=== PATIENT | female | born 1985 | race Hispanic/Latino ===

== ENCOUNTER 2019-12-21 05:44 | Emergency (ER) | payer OTHER ==
[2019-12-21] MEDS ORDERED: KETOROLAC TROMETHAMINE 60 MG/2 ML VIAL ONE (06:37)
[2019-12-21] MEDS ORDERED: ORPHENADRINE CITRATE 30 MG/ML ML ONE (06:37)
== END 2019-12-21 06:56 | disposition home or self-care (01) ==
LOC: EDH 05:44
DX: M62.830 Muscle spasm of back (principal); R07.89 Other chest pain
CPT/HCPCS: 96372 ×2; 99284; J1885; J2360

== ENCOUNTER 2019-12-26 16:12 | Emergency (ER) | payer OTHER ==
[2019-12-26 16:53] LABS: BASOPHILS % (AUTO) 0.9 % (0.0-5.0); EOSINOPHILS % (AUTO) 1.5 % (0.0-8.0); HEMATOCRIT 37.8 % (36-48); LYMPHOCYTES % (AUTO) 22.9 % (21.0-51.0); MEAN CORPUSCULAR HEMOGLOBIN 27.3 pg (27.0-33.0); MEAN CORPUSCULAR HGB CONC 33.6 g/dL (32.0-36.0); MEAN CORPUSCULAR VOLUME 81.3 fL (79-99); MONOCYTES % (AUTO) 7.8 % (3.0-13.0); NEUTROPHILS % (AUTO) 66.7 % (40.0-77.0); PLATELET COUNT (AUTO) 251 K/uL (130-400); RED BLOOD CELL COUNT(AUTO) 4.65 MIL/uL (4.00-5.50); RED CELL DISTRIBUTION WIDTH 11.9 % (11.0-15.5); WHITE BLOOD COUNT (AUTO) 9.4 K/uL (4.8-10.8)
[2019-12-26 17:00] LABS: APPEARANCE,URINE Clear (CLEAR); BILIRUBIN,URINE Negative (NEGATIVE); COLOR,URINE Yellow (YELLOW); GLUCOSE, URINE (UA) Negative (NEGATIVE); KETONES,URINE Negative (NEGATIVE); LEUKOCYTE ESTERASE ,URINE Negative (NEGATIVE); NITRATE,URINE Negative (NEGATIVE); OCCULT BLOOD,URINE Negative (NEGATIVE); PH,URINE 5.5 (5.0-8.0); PROTEIN,URINE Negative (NEGATIVE)
[2019-12-26 17:04] LABS: HCG,QUAL RESULT NEGATIVE (NEGATIVE)
[2019-12-26 17:07] LABS: AMPHET/METH SCREEN,URINE NEGATIVE (NEGATIVE); BARBITURATE SCREEN, URINE NEGATIVE (NEGATIVE); BENZODIAZEPINES SCREEN,URINE NEGATIVE (NEGATIVE); CANNABINOID SCREEN,URINE NEGATIVE (NEGATIVE); COCAINE SCREEN,URINE NEGATIVE (NEGATIVE); OPIATE SCREEN,URINE NEGATIVE (NEGATIVE); PHENCYCLIDINE SCREEN,URINE NEGATIVE (NEGATIVE)
[2019-12-26 17:43] LABS: CREATININE 0.7 mg/dL (0.5-1.5); POTASSIUM 3.5 mmol/L (3.5-5.1)
[2019-12-26] MEDS ORDERED: KETOROLAC TROMETHAMINE 30MG/ML ONE (17:49)
[2019-12-26] MEDS ORDERED: ONDANSETRON ODT 4 MG TAB ONE (17:49)
[2019-12-26 17:50] LABS: ALBUMIN 3.3 g/dL (3.5-5.0); BILIRUBIN,DIRECT 0.1 mg/dL (0.0-0.3); BILIRUBIN,TOTAL 0.2 mg/dL (0.2-1.0); TOTAL PROTEIN, SERUM 7.3 g/dL (6.0-8.3)
== END 2019-12-26 18:56 | disposition home or self-care (01) ==
LOC: EDH 16:12
DX: K59.00 Constipation, unspecified (principal); R10.31 Right lower quadrant pain
CPT/HCPCS: 36415; 74018; 80048; 80076; 80305; 81003; 81025; 83690; 85025; 96372; 99284; J1885

== ENCOUNTER 2022-03-31 00:21 | Emergency (ER) | payer OTHER ==
[~2022-03-31] VITALS: Ht 154.9 cm; Wt 85.3 kg
[2022-03-31 00:45] LABS: APPEARANCE,URINE CLEAR (CLEAR); BILIRUBIN,URINE NEGATIVE (NEGATIVE); COLOR,URINE YELLOW (YELLOW); GLUCOSE, URINE (UA) NEGATIVE (NEGATIVE); KETONES,URINE NEGATIVE (NEGATIVE); LEUKOCYTE ESTERASE ,URINE NEGATIVE (NEGATIVE); NITRATE,URINE NEGATIVE (NEGATIVE); OCCULT BLOOD,URINE NEGATIVE (NEGATIVE); PROTEIN,URINE NEGATIVE (NEGATIVE); UROBILINOGEN,URINE 0.2 mg/dL (0.2-1.0)
[2022-03-31] MEDS ORDERED: KETOROLAC 30MG VIAL (30MG/ML) IM ONE (01:00)
[2022-03-31 03:14] VITALS: BP 128/65
[2022-03-31] MEDS ORDERED: IBUP-1493 PO (03:15)
[2022-03-31] MEDS ORDERED: CYCL10TA16 PO (03:15)
== END 2022-03-31 03:33 | disposition home or self-care (01) ==
LOC: EDH 00:21
DX: R07.89 Other chest pain (principal); M54.50 Low back pain, unspecified; Z79.1 Long term (current) use of non-steroidal anti-inflammatories (NSAID); W18.39XA Other fall on same level, initial encounter; Y93.89 Activity, other specified; Y92.89 Other specified places as the place of occurrence of the external cause; Y99.8 Other external cause status
CPT/HCPCS: 99284; 81003; 81025; 71101; 96372; 72100; J1885

== ENCOUNTER 2022-12-14 07:35 | Emergency (ER) | payer OTHER ==
[~2022-12-14] VITALS: Ht 154.9 cm; Wt 79.4 kg
[~2022-12-14 07:35] MED LIST: CYCL10TA16 PO; IBUP-1493 PO
[2022-12-14 07:38] VITALS: BP 122/80
[2022-12-14 08:44] LABS: HCG,QUALITATIVE URINE NEGATIVE (NEGATIVE)
[2022-12-14 08:45] LABS: APPEARANCE,URINE CLOUDY (CLEAR); BILIRUBIN,URINE NEGATIVE (NEGATIVE); COLOR,URINE YELLOW (YELLOW); GLUCOSE, URINE (UA) NEGATIVE (NEGATIVE); KETONES,URINE NEGATIVE (NEGATIVE); LEUKOCYTE ESTERASE ,URINE 500 Leu/uL (NEGATIVE); NITRATE,URINE NEGATIVE (NEGATIVE); OCCULT BLOOD,URINE NEGATIVE (NEGATIVE); PROTEIN,URINE 20 mg/dL (NEGATIVE); UROBILINOGEN,URINE 0.2 mg/dL (0.2-1.0)
[2022-12-14 08:53] LABS: BACTERIA,URINE FEW /HPF (None Seen); MUCUS,URINE MANY LPF (None Seen); SQUAMOUS EPITHELIAL CELL,UR FEW /HPF (0-2); WBC,URINE 51-100 /HPF (0-1)
[2022-12-14] MEDS ORDERED: PHENAZOPYRIDINE HCL 200 MG TABLET PO ONE (09:00)
[2022-12-14] MEDS ORDERED: CEFTRIAXONE 1G VIAL IM ONE (09:00)
[2022-12-14] MEDS ORDERED: IBUPROFEN 600 MG TABLET PO ONE (09:00)
[2022-12-14] MEDS ORDERED: ONDA4TAB10 PO (09:16)
[2022-12-14] MEDS ORDERED: SULF1TAB42 PO (09:16)
[2022-12-14] MEDS ORDERED: PHEN-847 PO (09:16)
== END 2022-12-14 09:30 | disposition home or self-care (01) ==
LOC: EDH 07:35
DX: N30.00 Acute cystitis without hematuria (principal); Z79.899 Other long term (current) drug therapy
CPT/HCPCS: 99283; 87088; 87797; 87486; 81001; 81025; 96372; J0696

== ENCOUNTER 2024-08-28 18:35 | Emergency (ER) | payer BC ==
[~2024-08-28] VITALS: Ht 154.9 cm; Wt 81.6 kg
[~2024-08-28 18:35] MED LIST changes: +ONDA-243 PO; +PHEN-847 PO; +SULF1TAB42 PO
--- NOTE | 2024-08-28 18:55 | ERN ---
General Chief Complaint: Cough Stated Complaint: COUGH Time Seen by MD: 18:37 Time Seen by Midlevel: 18:37 Source: patient History of Present Illness Initial Comments Patient is a 38-year-old female with no significant past medical history presenting to the emergency department with flu-like symptoms that started two days ago. Patient states her daughter was sick with similar symptoms several days ago and was diagnosed with a cold. Symptoms consist of cough, congestion, and generalized chills. She was not seen her primary care doctor for this. Denies taking any medications on a daily basis. Denies any past medical/surgical history. Allergies: Coded Allergies: No Known Drug Allergies (Unverified Allergy, Unknown, 12/21/19) Home Meds Active Scripts Phenazopyridine HCl (Pyridium) 200 Mg Tab, 200 MG PO TIDPC, #15 TAB 0 Refills TAKE WITH FOOD TO PREVENT STOMACH UPSET. Prov:TOBIAS HAUSER MD 12/14/22 Ondansetron (Ondansetron Odt) 4 Mg Tab.rapdis, 4 MG PO TID, #30 TAB 0 Refills Prov:TOBIAS HAUSER MD 12/14/22 Sulfamethoxazole/Trimethoprim (Bactrim Ds Tablet) 1 Each Tablet, 1 TAB PO BID for 7 Days, #14 TAB 0 Refills Prov:TOBIAS HAUSER MD 12/14/22 Cyclobenzaprine HCl (Flexeril) 10 Mg Tab, 10 MG PO TID, #30 TAB Prov:ANGELIA TREVIZO MD 03/31/22 Ibuprofen (Motrin/Advil) 800 Mg Tab, 800 MG PO TID PRN for pain, #60 TAB Prov:ANGELIA TREVIZO MD 03/31/22 Past Medical History Past Medical History: No Pertinent History Past Surgical History: None Family History Family History: Negative Social History Social History: Negative, Lives with family ROS Dictation CONSTITUTIONAL: Negative except for HPI HEAD/FACE: Negative except for HPI EENT: Negative except for HPI RESPIRATORY: Negative except for HPI GASTROINTESTINAL/ABDOMINAL: Negative except for HPI GENITOURINARY: Negative except for HPI MUSCULOSKELETAL: Negative except for HPI INTEGUMENTARY: Negative except for HPI NEUROLOGICAL/PSYCH: Negative except for HPI HEMATOLOGIC/LYMPHATIC: Negative except for HPI All Systems Negative, Except as noted above. 13 point review of systems assessed and all negative except for above. Physical Exam Physical Exam Dictation Vital Signs reviewed General Appearance: Alert, oriented x 3, no acute distress, well developed, nourished. Head and Face: non-traumatic. Eyes: PERRL, pink conjunctivas, eyelid no trauma, anterior chamber with arcus senilis. Ears: Pinnas intact and no signs of trauma or erythema ear canals clear and no discharge TM no erythema Nose: No discharge, no bleeding. Oropharynx: Mouth normal, tongue pink, pharynx clear,no erythema, tonsils no exudates, no abscesses noted, mucous membrane moist Neck: Supple, non-tender, no thyromegaly, no masses, no JVD, no bruits Breast:Deferred Chest:No tenderness, no crepitus, no paradoxical movement, no retractions Lungs:Clear, well-ventilated, symmetric, no rales, no wheezing, no rhonchi, no stridor, good breath sounds bilaterally Heart: Regular rate, regular rhythm, no murmur, no gallops Vascular: no peripheral edema, Abdomen: Soft, positive bowel sounds, nondistended, no guarding, nontender, no rebound, no masses no hepatomegaly, no splenomegaly, no Rodriguez's sign, no hernias. Rectal: Deferred Genital: Deferred Neurological: Normal speech, motor function intact, sensory function intact Musculoskeletal: Neck nontender, full range of motion, back nontender, full range of motion, Extremities: nontender, full range of motion Skin: Color pink, dry, no turgor, no rash, no lacerations, no abrasions, no contusions. Lymphatic: Deferred Results Laboratory and Microbiology Lab and Micro Result Laboratory Tests Test 08/28/24 19:25 Influenza Type A Antigen Negative For Type A Influenza Type B Antigen Negative For Type B SARS-CoV-2, RNA, NAAT NEGATIVE SARS CoV-2 Group A Streptococcus Rapid negative (NEGATIVE) Labs Reviewed?: Yes MDM MDM: Patient is a 38-year-old female with no significant past medical history presenting to the emergency department with flu-like symptoms that started two days ago. Patient states her daughter was sick with similar symptoms several days ago and was diagnosed with a cold. Symptoms consist of cough, congestion, and generalized chills. She was not seen her primary care doctor for this. Denies taking any medications on a daily basis. Denies any past medical/surgical history. On physical examination patient is in no acute respiratory distress. Vital signs are stable. Patient is afebrile and nontoxic appearing. Respiratory swabs are negative. Chest x-ray does not show any evidence for pneumonia. Symptoms most likely viral in nature. We will send home with supportive management. Differential diagnosis: Viral syndrome, upper respiratory infection, strep pharyngitis, pneumonia There are no social concerns with this patient. Prescription drug management Prescriptions will include: Mucinex Medical management and examination interpretation discussions were had by me with other qualified healthcare professionals as indicated for the patient's care. ED Course Orders Procedure Category Date Status Time Covid Rna Naat LAB 08/28/24 Complete 18:41 Influenza Type A & B, LAB 08/28/24 Complete Rapid 18:41 Rapid (Group A Strep) LAB 08/28/24 Complete 18:41 Chest 1vw RAD 08/28/24 Resulted 18:41 Acetaminophen 325 Tab PHA 08/28/24 Complete (Tylenol 325mg Tab 19:00 Guaifenesin/Dextromethorphan PHA 08/28/24 Complete (Mucinex Dm 19:00 Current Medications Medications (Trade) Dose Ordered Sig/Janay Route PRN Reason Start Time Stop Time Status Last Admin Dose Admin Acetaminophen (TYLenol 325MG TAB) 650 mg ONCE ONCE PO 08/28/24 19:00 08/28/24 19:01 DC 08/28/24 19:24 Guaifenesin/ Dextromethorphan (MUCinex DM 1 EACH TAB.SR.12H) 1 each ONCE ONCE PO 08/28/24 19:00 08/28/24 19:01 DC 08/28/24 19:24 Vital Signs Date Time Temp Pulse Resp B/P (MAP) Pulse Ox O2 Delivery O2 Flow Rate FiO2 08/28/24 19:24 99.1 08/28/24 18:37 99.1 97 18 156/84 98 Room Air 0 DX & DISP Disposition: Discharge Departure Impression: Primary Impression: Viral syndrome Condition: Stable Scripts Ketorolac Tromethamine (Ketorolac Tromethamine) 10 Mg Tablet 1 TAB PO TID for pain for 5 Days, #15 TAB 0 Refills Prov: MANUEL MARTIN 08/28/24 Guaifenesin/Pseudoephedrne HCl (Mucinex D ER 1,200-120 mg Tab) 1,200 Mg-120 Mg Tab.er.12h 1 TAB PO BID for 10 Days, #20 TAB 0 Refills Prov: MANUEL MARTIN 08/28/24 Additional Instructions: You have tested negative for influenza a, influenza B, COVID-19, and strep. Your chest x-ray does not show any evidence of pneumonia. You will need to follow up with your primary care doctor in 2-3 days for repeat evaluation. Return to your nearest ER for any new or worsening symptoms. Referrals: SELF,REFERRAL (PCP) Time of Disposition: 20:21 I have reviewed the case, and I agree with, Diagnosis and Plan I performed the substantive portion of the visit. I have reviewed and personally made and approve the management plan that is documented in the note by myself or the [place]. I acknowledge for responsibility for the patient's management plan. MANUEL MARTIN Aug 28, 2024 18:54
--- NOTE | 2024-08-28 19:10 | HMCIMG ---
CHEST 1VW REASON: cough/fever COMPARISON: None. FINDINGS: Single view of the chest was obtained. Lungs are clear. Heart size is normal. There is no pulmonary vascular congestion. Mediastinum and bony thorax appear unremarkable. IMPRESSION: 1. Normal single view chest x-ray.
[2024-08-28] MEDS: guaiFENesin/dextroMETHORphan 1 EACH TAB.SR.12H PO ONE (19:24)
[2024-08-28] MEDS: acetaMINOPHEN 325 MG TAB PO ONE (19:24)
[2024-08-28 19:58] LABS: RAPID GROUP A STREP negative (NEGATIVE)
[2024-08-28 20:02] LABS: SARS-CoV-2, RNA, NAAT NEGATIVE SARS CoV-2 (NEGATIVE)
[2024-08-28 20:08] LABS: INFLUENZA TYPE A Negative For Type A (NEGATIVE); INFLUENZA TYPE B Negative For Type B (NEGATIVE)
[2024-08-28] MEDS ORDERED: GUAI-484 PO (20:24)
[2024-08-28] MEDS ORDERED: KETO10TA2 PO (20:24)
[2024-08-28 20:26] VITALS: TEMP 98
[2024-08-28 20:27] VITALS: BP 147/79; PULSE 88; RESP 18; TEMP 98; O2SAT 98
== END 2024-08-28 20:33 | disposition home or self-care (01) ==
LOC: EDH 18:35
DX: B34.9 Viral infection, unspecified (principal); Z20.822 Contact with and (suspected) exposure to COVID-19; Z79.899 Other long term (current) drug therapy
CPT/HCPCS: 71045; 87635; 87804; 87880; 99283

== ENCOUNTER 2025-07-22 15:03 | Emergency (ER) | payer BC ==
[~2025-07-22] VITALS: Ht 162.6 cm; Wt 77.1 kg
[~2025-07-22 15:03] MED LIST changes: +GUAI-484 PO; +KETO10TA2 PO
--- NOTE | 2025-07-22 15:30 | EKG ---
[facility] Test Date: 2025-07-22 Test Time: 15:22:59 Pat Name: TIGRE SHEPHERD Department: [facility] Room: Gender: F [employer]: [id number] : 1985 Requested By: VITALY LEE Order Number: [id number] Reading MD: James Moctezuma Measurements Intervals [place] Rate: 73 P: 44 AR: 101 QRS: 51 QRSD: 93 T: 41 QT: 418 QTc: 460 Interpretive Statements Sinus rhythm No previous ECG available for comparison Electronically Signed On 07-23-2025 11:12:51 DIRECTOR OF ACCREDITATION by James Moctezuma Please click the below link to view image of tracing.
[2025-07-22 15:39] LABS: IMMATURE GRANULOCYTE ABSOLUTE 0.05 K/uL (0-1); NUCLEATED RED BLOOD CELLS 0.0 % (0.0-0.19); PLATELET COUNT (AUTO) 284 K/uL (130-400); RED BLOOD CELL COUNT(AUTO) 4.86 MIL/uL (4.00-5.50); RED CELL DISTRIBUTION WIDTH 13.5 % (11.0-15.5); WHITE BLOOD COUNT (AUTO) 11.3 K/uL (4.8-10.8)
[2025-07-22] MEDS: 0.9%NACL 1000ML 1,000 ML IV ONE (15:44)
[2025-07-22 16:00] LABS: ASPARTATE AMINOTRANSFERASE 18.0 U/L (10-37); CREATINE KINASE, TOTAL 122.0 U/L (21-232); CREATININE 0.7 mg/dL (0.5-1.0); GLOMERULAR FILTR. RATE CALC 114.0 mL/min (>90); GLUCOSE,RANDOM 90.0 mg/dL (70-105); HCG,QUANTITATIVE 0.0 mIU/mL (0-5); SODIUM SERUM 143.0 mmol/L (136-145); TOTAL PROTEIN, SERUM 7.4 g/dL (6.0-8.3); UREA NITROGEN, BLOOD 13.0 mg/dL (7-18)
--- NOTE | 2025-07-22 16:34 | ERN ---
General Chief Complaint: Nausea,Vomiting,Diarrhea Stated Complaint: N/V R/T ALCOHOL ABUSE Time Seen by MD: 15:09 Source: patient History of Present Illness Initial Comments PATIENT IS A 39-YEAR-OLD FEMALE COMING IN COMPLAINING OF ABDOMINAL PAIN IN HIS DISCOMFORT. PER PATIENT THE PAIN IN HIS GENERALIZED AND STATES THAT SHE HAS BEEN DRINKING ALCOHOL YESTERDAY AND BELIEVES THIS MIGHT BE THE REASON WHY SHE IS FEELING ABDOMINAL DISCOMFORT. Allergies: Coded Allergies: No Known Drug Allergies (Unverified Allergy, Unknown, 12/21/19) Home Meds Active Scripts Ketorolac Tromethamine (Ketorolac Tromethamine) 10 Mg Tablet, 1 TAB PO TID for pain for 5 Days, #15 TAB 0 Refills Prov:MANUEL MARTIN 08/28/24 Guaifenesin/Pseudoephedrne HCl (Mucinex D ER 1,200-120 mg Tab) 1,200 Mg-120 Mg Tab.er.12h, 1 TAB PO BID for 10 Days, #20 TAB 0 Refills Prov:MANUEL MARTIN 08/28/24 Phenazopyridine HCl (Pyridium) 200 Mg Tab, 200 MG PO TIDPC, #15 TAB 0 Refills TAKE WITH FOOD TO PREVENT STOMACH UPSET. Prov:TOBIAS HAUSER MD 12/14/22 Ondansetron (Ondansetron Odt) 4 Mg Tab.rapdis, 4 MG PO TID, #30 TAB 0 Refills Prov:TOBIAS HAUSER MD 12/14/22 Sulfamethoxazole/Trimethoprim (Bactrim Ds Tablet) 1 Each Tablet, 1 TAB PO BID for 7 Days, #14 TAB 0 Refills Prov:TOBIAS HAUSER MD 12/14/22 Cyclobenzaprine HCl (Flexeril) 10 Mg Tab, 10 MG PO TID, #30 TAB Prov:ANGELIA TREVIZO MD 03/31/22 Ibuprofen (Motrin/Advil) 800 Mg Tab, 800 MG PO TID PRN for pain, #60 TAB Prov:ANGELIA TREVIZO MD 03/31/22 Past Medical History Past Medical History: No Pertinent History Past Surgical History: None Family History Family History: Negative Social History Social History: Negative, Lives with family Female( History) LMP: Jul 19, 2025 ROS Dictation CONSTITUTIONAL: NO CHILLS, NO FEVER, NO WEAKNESS, NO DIAPHORESIS, NO MALAISE. HEAD/FACE: NO SIGNS OF TRAUMA. EENT: NO EYE PAIN, NO BLURRED VISION, NO TEARING, NO DOUBLE VISION, NO EAR PAIN, NO EAR DISCHARGE, NO NOSE PAIN, NO NASAL CONGESTION, NO THROAT PAIN, NO THROAT SWELLING, NO MOUTH PAIN. RESPIRATORY: NO COUGH, NO ORTHOPNEA, NO SOB, NO STRIDOR, NO WHEEZING. CARDIOVASCULAR: NO CHEST PAIN, NO EDEMA, NO PALPITATIONS, NO SYNCOPE. GASTROINTESTINAL/ABDOMINAL: ABDOMINAL PAIN, NO CONSTIPATION, NO DIARRHEA, NAUSEA, VOMITING. GENITOURINARY: NO ABNORMAL DISCHARGE, NO DYSURIA, NO FREQUENT URINATION, NO HEMATURIA. NO COMPLAINTS OF PAIN IN THE GENITALS. MUSCULOSKELETAL: NO BACK PAIN, NO GOUT, NO JOINT PAIN, NO JOINT SWELLING, NO MUSCLE PAIN, NO MUSCLE STIFFNESS, NO NECK PAIN. INTEGUMENTARY: NO CHANGE IN COLOR, NO CHANGE IN HAIR/NAILS, NO DRYNESS, NO LESION, NO LUMPS, NO RASH. NEUROLOGICAL/PSYCH: NO ANXIETY, NOT DEPRESSED, NO EMOTIONAL PROBLEM, NO HEADA YANIRA, NO NUMBNESS, NO PRE-EXISTING DEFICIT, NO HISTORY OF SEIZURES, NO TREMORS, NO WEAKNESS. HEMATOLOGIC/LYMPHATIC: NOT ANEMIC, NO HISTORY OF BLOOD CLOTS, NO APPARENT BLEEDING, NO BRUISING, GLANDS NOT SWOLLEN. ALL SYSTEMS NEGATIVE, EXCEPT NOTED. Physical Exam Physical Exam Dictation VITAL SIGNS: REVIEWED. GENERAL APPEARANCE: ALERT, ORIENTED X3, NO ACUTE DISTRESS, OBESE. HEAD AND FACE: NON-TRAUMATIC. EYES: PERRL, PINK CONJUNCTIVAS, EYELID NO TRAUMA, ANTERIOR CHAMBER CLEAR. EARS: PINNAS INTACT AND NO SIGNS OF TRAUMA OR ERYTHEMA. EAR CANALS CLEAR AND NO DISCHARGE. TMS NO ERYTHEMA. NOSE: NO DISCHARGE, NO BLEEDING. OROPHARYNX: MOUTH NORMAL, TEETH NO CARIES, TONGUE PINK. PHARYNX CLEAR, NO ERYTHEMA. TONSILS NO EXUDATES, NO ABSCESSES NOTED. MUCOUS MEMBRANE MOIST. NECK: SUPPLE, NON-TENDER, NO THYROMEGALY, NO MASSES, NO JVD, NO BRUITS. BREAST: DEFERRED. CHEST: NO TENDERNESS, NO CREPITUS, NO PARADOXICAL MOVEMENT, NO RETRACTIONS. LUNGS: CLEAR, WELL-VENTILATED, SYMMETRIC, NO RALES, NO WHEEZING, NO RHONCHI, NO STRIDOR, GOOD BREATH SOUNDS BILATERALLY. HEART: REGULAR RATE, REGULAR RHYTHM, NO MURMUR, NO GALLOPS. VASCULAR: NO PERIPHERAL EDEMA. ABDOMEN: SOFT, POSITIVE BOWEL SOUNDS, NONDISTENDED, NO GUARDING, NONTENDER, NO REBOUND, NO MASSES NO HEPATOMEGALY, NO SPLENOMEGALY, NO VASQUEZ'S SIGN, NO HERNIAS. RECTAL: DEFERRED. GENITAL: DEFERRED. NEUROLOGICAL: NORMAL SPEECH, GROSS MOTOR FUNCTION INTACT, GROSS SENSORY FUNCTION INTACT. MUSCULOSKELETAL: NECK NONTENDER, FULL RANGE OF MOTION, BACK NONTENDER, FULL RANGE OF MOTION. EXTREMITIES: NONTENDER, FULL RANGE OF MOTION. SKIN: COLOR PINK, DRY, NO TURGOR, NO RASH, NO LACERATIONS, NO ABRASIONS, NO CONTUSIONS. LYMPHATICS: DEFERRED. Results Laboratory and Microbiology Lab and Micro Result Laboratory Tests Test 07/22/25 15:31 07/22/25 17:51 White Blood Count 11.3 K/uL (4.8-10.8) H Red Blood Count 4.86 MIL/uL (4.00-5.50) Hemoglobin 12.6 g/dL (12.0-16.0) Hematocrit 38.3 % (36-48) Mean Corpuscular Volume 78.8 fL (79-99) L Mean Corpuscular Hemoglobin 25.9 pg (27.0-33.0) L Mean Corpuscular Hemoglobin Concent 32.9 g/dL (32.0-36.0) Red Cell Distribution Width 13.5 % (11.0-15.5) Platelet Count 284 K/uL (130-400) Mean Platelet Volume 10.5 fL (7.5-10.5) Immature Granulocyte % (Auto) 0.4 % (0-1) Neutrophils (%) (Auto) 75.3 % (40.0-77.0) Lymphocytes (%) (Auto) 15.9 % (21.0-51.0) L Monocytes (%) (Auto) 7.4 % (3.0-13.0) Eosinophils (%) (Auto) 0.3 % (0.0-8.0) Basophils (%) (Auto) 0.7 % (0.0-5.0) Neutrophils # (Auto) 8.5 K/uL (1.8-7.7) H Lymphocytes # (Auto) 1.8 K/uL (1.0-4.8) Monocytes # (Auto) 0.8 K/uL (0.1-1.0) Eosinophils # (Auto) 0.03 K/uL (0.00-0.70) Basophils # (Auto) 0.08 K/uL (0.00-0.20) Absolute Immature Granulocyte (auto 0.05 K/uL (0-1) Nucleated Red Blood Cells 0.0 % (0.0-0.19) Sodium Level 143 mmol/L (136-145) Potassium Level 3.1 mmol/L (3.5-5.1) L Chloride Level 104 mmol/L (101-111) Carbon Dioxide Level 29 mmol/L (21-32) Blood Urea Nitrogen 13 mg/dL (7-18) Creatinine 0.7 mg/dL (0.5-1.0) Glomerular Filtration Rate Calc 114 mL/min (>90) Random Glucose 90 mg/dL (70-105) Total Calcium 8.5 mg/dL (8.5-10.1) Total Bilirubin 0.4 mg/dL (0.2-1.0) Aspartate Amino Transf (AST/SGOT) 18 U/L (10-37) Alanine Aminotransferase (ALT/SGPT) 22 U/L (12-78) Alkaline Phosphatase 104 U/L (50-136) Total Creatine Kinase 122 U/L (21-232) Troponin I High Sensitivity 4 ng/L (4-50) Total Protein 7.4 g/dL (6.0-8.3) Albumin 3.6 g/dL (3.5-5.0) Lipase 29 U/L (16-77) Human Chorionic Gonadotropin, Quant 0 mIU/mL (0-5) Serum Alcohol < 3 mg/dL (0-10) Urine Color YELLOW (YELLOW) Urine Appearance CLEAR (CLEAR) Urine pH 6.0 (5.0-8.0) Urine Specific [place] 1.025 (1.001-1.031) Urine Protein NEGATIVE mg/dL (NEGATIVE) Urine Glucose (UA) NEGATIVE mg/dL (NEGATIVE) Urine Ketones >=80 mg/dL (NEGATIVE) Urine Occult Blood NEGATIVE (NEGATIVE) Urine Nitrate NEGATIVE (NEGATIVE) Urine Bilirubin NEGATIVE mg/dL (NEGATIVE) Urine Urobilinogen 0.2 mg/dL (0.2-1.0) Urine Leukocyte Esterase NEGATIVE [place]/uL Urine RBC 2-5 /HPF (0-1) H Urine WBC 0-1 /HPF (0-1) Urine Squamous Epithelial Cells RARE /HPF (0-2) Urine Bacteria RARE /HPF (None Seen) Urine HCG, Qualitative NEGATIVE (NEGATIVE) Urine Opiates Screen NEGATIVE (NEGATIVE) Urine Barbiturates Screen NEGATIVE (NEGATIVE) Urine Phencyclidine Screen NEGATIVE (NEGATIVE) Urine Amphetamines Screen NEGATIVE (NEGATIVE) Urine Benzodiazepines Screen NEGATIVE (NEGATIVE) Urine Cocaine Screen NEGATIVE (NEGATIVE) Urine Marijuana (THC) Screen NEGATIVE (NEGATIVE) Labs Reviewed?: Yes EKG/XRAY/US/CT/MRI EKG Comment 07/22/2025 TIME 3:22 P.M. VENTRICULAR RATE [address] WAVE ELEVATION OR DEPRESSION MDM MDM: DIFFERENTIAL DIAGNOSIS: GASTRITIS, VIRAL GASTROENTERITIS, ALCOHOL POISONING, RATIONALE: TESTS CONSIDERED AND ORDERED SECONDARY TO SHARED DECISION MAKING INCLUDE: PREVIOUS OUTSIDE RECORDS REVIEWED: OLD ER VISITS. RISK OF COMPLICATION AND/OR MORBIDITY OR MORTALITY OF PATIENT MANAGEMENT: NONE MEDICATIONS-PER MEDICATION RECONCILIATION NEED FOR HOSPITALIZATION: PATIENT DOES NOT MEET CRITERIA FOR HOSPITALIZATION. NEED FOR EMERGENCY MAJOR/MINOR SURGERY: NO PATIENT IS A 39-YEAR-OLD FEMALE COMING IN COMPLAINING OF ABDOMINAL DISCOMFORT AFTER DRINKING ALCOHOL LAST NIGHT. LABORATORY WORKUP WITHIN NORMAL LIMITS. PATIENT RECEIVED IV FLUIDS WELL IV PROTONIX STATES HER SYMPTOMS HAVE SUBSIDED. POTASSIUM WAS REPLACED. I DID ADVISED HER APPROPRIATE FOLLOW UP WITH PCP ALSO ADVISE HER ALCOHOL ABSTINENCE THIS WILL INCREASE HER DISCOMFORT. MEDICATION WILL BE PROVIDED FOR NAUSEOUSNESS. THE PATIENT HAS BEEN STABLE TOLERATING ORAL INTAKE. ED Course Orders Procedure Category Date Status Time Cbc With Differential LAB 07/22/25 Complete 15:17 Comprehensive LAB 07/22/25 Complete Metabolic Panel 15:17 Troponin I High LAB 07/22/25 Complete Sensitivity 15:17 Hcg,Quantitative LAB 07/22/25 Complete 15:17 ,Urine Test LAB 07/22/25 Complete 15:17 Urinalysis Profile LAB 07/22/25 Complete 15:17 12 Lead Ekg Tracing- EKG 07/22/25 Complete Technical 15:17 0.9%Nacl 1000ml (Ns PHA 07/22/25 Complete 1000ml) 15:30 Ondansetron 4mg Inj PHA 07/22/25 Complete (Zofran 4mg Inj) 15:30 Pantoprazole 40mg Inj PHA 07/22/25 Complete (Protonix 40mg Inj 15:30 Creatine Kinase, Total LAB 07/22/25 Complete 15:17 Lipase LAB 07/22/25 Complete 15:17 Drug Screen Urine LAB 07/22/25 Complete 16:31 Alcohol, Blood LAB 07/22/25 Complete 16:31 Potassium Bicarb/Cit PHA 07/22/25 Logged Ac 25meq (K-Lyte Ta 19:00 Current Medications Medications (Trade) Dose Ordered Sig/Janay Route PRN Reason Start Time Stop Time Status Last Admin Dose Admin Ondansetron HCl (zoFRAN 4MG INJ) 4 mg ONCE ONCE IVP 07/22/25 15:30 07/22/25 15:31 DC 07/22/25 15:44 Pantoprazole Sodium (PROTonix 40MG INJ) 40 mg ONCE ONCE IVP 07/22/25 15:30 07/22/25 15:31 DC 07/22/25 15:44 Potassium Bicarbonate (K-Lyte Tablet Eff 25 Meq Tablet.eff) 25 meq ONCE ONCE PO 07/22/25 19:00 07/22/25 19:01 UNV Sodium Chloride 1,000 ml @ 0 mls/hr ONCE ONCE IV 07/22/25 15:30 07/22/25 15:31 DC 07/22/25 15:44 Vital Signs Date Time Temp Pulse Resp B/P (MAP) Pulse Ox O2 Delivery O2 Flow Rate FiO2 07/22/25 16:32 62 16 110/56 98 Room Air* 0 21 07/22/25 15:45 74 16 117/72 99 Room Air* 0 21 07/22/25 15:05 97.9 86 16 121/61 98 Room Air 0 DX & DISP Disposition: Discharge Departure Impression: Primary Impression: Gastroenteritis Additional Impression: Alcoholic gastritis Condition: Stable Scripts Lactobacillus Acidophilus (Acidophilus Probiotic) 500 Million Cell Capsule 1 CAP PO BID for 7 Days, #14 CAP 0 Refills Prov: VITALY LEE MD 07/22/25 Ondansetron (Ondansetron Odt) 4 Mg Tab.rapdis 1 TAB PO BID PRN for nausea/vomiting for 2 Days, #6 TAB 0 Refills Prov: VITALY LEE MD 07/22/25 Additional Instructions: FOLLOW-UP WITH PRIMARY CARE PROVIDER IN 1 TO 2 DAYS. TAKE MEDICATIONS DIRECTED HERE IN THE EMERGENCY ROOM. OKAY TO CONTINUE HOME MEDICATIONS UNLESS OTHERWISE DISCUSSED DURING YOUR VISIT IN THE EMERGENCY ROOM TODAY. RETURN TO YOUR NEAREST EMERGENCY ROOM IF SYMPTOMS WORSEN OR IF THERE IS NO IMPROVEMENT. CALL 911 IF YOU NEED IMMEDIATE ASSISTANCE. TAKE TYLENOL [id number] NEEDED AND IF NO CONTRAINDICATIONS ARE PRESENT. INCREASE ORAL HYDRATION. A WOUND CULTURE OR URINE CULTURE WAS ORDERED HERE IN THE EMERGENCY ROOM DEPARTMENT PLEASE FOLLOW-UP WITH PRIMARY CARE PROVIDER AND ADVISE THEM TO GET REPORTS FROM OUR FACILITY. IF YOU HAD ANY CARLIN WRAP/SPLINTS THAT WERE APPLIED HERE, PLEASE DO NOT REMOVE THEM UNTIL YOU SEE YOUR PRIMARY CARE OR SPECIALTY. REFERRALS: Referrals: MIRIAM ROBLEDO MD (PCP) Time of Disposition: 18:39 VITALY LEE MD Jul 22, 2025 16:34
--- NOTE | 2025-07-22 16:35 | NUR ---
PT STATES HAS NO URGE TO URINATE AT THIS TIME, RECEIVING 1 LITER NS BOLUS, WILL RECHECK
[2025-07-22 18:22] LABS: APPEARANCE,URINE CLEAR (CLEAR); GLUCOSE, URINE (UA) NEGATIVE (NEGATIVE); LEUKOCYTE ESTERASE ,URINE NEGATIVE Leu/uL (NEGATIVE); NITRATE,URINE NEGATIVE (NEGATIVE); OCCULT BLOOD,URINE NEGATIVE (NEGATIVE)
[2025-07-22 18:24] LABS: ADD UA MICROSCOPIC YES
[2025-07-22 18:26] LABS: HCG,QUALITATIVE URINE NEGATIVE (NEGATIVE); SQUAMOUS EPITHELIAL CELL,UR RARE /HPF (0-2)
[2025-07-22 18:30] LABS: AMPHET/METH SCREEN,URINE NEGATIVE (NEGATIVE); BARBITURATE SCREEN, URINE NEGATIVE (NEGATIVE); CANNABINOID SCREEN,URINE NEGATIVE (NEGATIVE); COCAINE SCREEN,URINE NEGATIVE (NEGATIVE)
[2025-07-22] MEDS ORDERED: LACT-356 PO (18:40)
[2025-07-22] MEDS ORDERED: ONDA-243 PO (18:40)
[2025-07-22 18:55] VITALS: BP 112/54; PULSE 69; RESP 16; TEMP 97.7; O2SAT 98
== END 2025-07-22 19:05 | disposition home or self-care (01) ==
LOC: EDH 15:03
DX: K52.9 Noninfective gastroenteritis and colitis, unspecified (principal); K29.20 Alcoholic gastritis without bleeding; F10.10 Alcohol abuse, uncomplicated
CPT/HCPCS: 99284; 96374; 96361; 96375; 82550; 84484; 80053; 80305; 84702; 83690; 85025; 81025; 36415; 93005; 81001; J7030; J2405; J2470